=== PATIENT | female | born 1960 | race Caucasian/White ===

== ENCOUNTER 2017-04-27 09:20 | Outpatient (CLI) | payer BC ==
--- NOTE | 2017-05-02 15:29 | DEXA Report ---
DEXA: 04/27/2017 CLINICAL INDICATION: A 56-year-old postmenopausal patient for screening. TECHNIQUE: Dual energy x-ray absorptiometry (DXA) was performed on a [employer] system. Regions measured are the AP spine, femoral neck, and, if needed, forearm. COMPARISON: None. In accordance with the International Society for Clinical Densitometry (ISCD) guidelines, data from previous exams may be reanalyzed using current recommendations and techniques. This is done to allow a more accurate basis for comparison with the current study. FINDINGS The data for the lumbar spine is as follows: REGION BMD (g/cm/cm) T-SCORE Z-SCORE L1 0.818 -2.6 -1.6 L2 0.841 -3.0 -2.0 L3 1.021 -1.5 -0.5 L4 0.985 -1.8 -0.8 TOTAL 0.923 -2.1 -1.1 NOTE: All evaluable vertebrae are used for classification. The data for the hip is as follows: REGION BMD (g/cm/cm) T-SCORE Z-SCORE Neck 0.880 -1.1 0.0 TOTAL 0.863 -1.1 -0.4 NOTE: The femoral neck or total proximal femur, whichever is lowest, is used for classification. IMPRESSION THE WHO CLASSIFICATION BASED ON THE INTERNATIONAL REFERENCE STANDARD IS OSTEOPENIA. THE FRACTURE RISK IS INCREASED. RECOMMENDATION: Patients with diagnosis of osteoporosis or osteopenia should have regular bone mineral density assessment. For those eligible for Medicare, routine testing is allowed once every 2 years. Testing frequency can be increased for patients who have rapidly progressing disease or for those who are receiving medical therapy to restore bone mass. COMMENT: World Health Organization (WHO) definitions for osteoporosis and osteopenia: NORMAL BMD: T-score at 1.0 or higher, fracture risk is low. OSTEOPENIA BMD: T-score between 1.0 and -2.5, fracture risk is increased. OSTEOPOROSIS BMD: T-score at 2.5 or lower, fracture risk high. National Osteoporosis Foundation recommends: 1. Obtain adequate dietary calcium (at least 1200 mg per day) and vitamin D (400 -800 international units per day). 2. Participate, as appropriate, in regular weightbearing and muscle- strengthening exercise. 3. Avoid tobacco use and reduce alcohol and caffeine intake. 4. For more detailed information see the website at www.NOF.org. TD: 04/27/2017 19:45 MTDKhanh
== END 2017-04-27 09:21 | disposition home or self-care (01) ==
LOC: DI 09:20
PROVIDERS: ATTEND Naturopath
DX: Z13.820 Encounter for screening for osteoporosis (principal); M85.89 Other specified disorders of bone density and structure, multiple sites; Z78.0 Asymptomatic menopausal state
CPT/HCPCS: 77080

== ENCOUNTER 2017-04-27 09:21 | Outpatient (CLI) | payer BC ==
--- NOTE | 2017-05-03 10:28 | Mammography Report ---
DATE OF SERVICE: 04/27/2017 DIGITAL BILATERAL SCREENING MAMMOGRAM: 04/27/2017 COMPARISON: Mammogram 07/26/2015. INDICATION: Screening mammography. TECHNIQUE: Bilateral CC and MLO breast views. FINDINGS: The breast parenchyma is heterogeneously dense, which may limit the sensitivity of mammography. A right breast marker is noted. No dominant mass, architectural distortion or concerning cluster of microcalcifications are seen in other regards. IMPRESSION: BIRADS category 2 - Benign findings. RECOMMENDATIONS: Annual screening mammography. STANDARD QUALIFYING STATEMENTS 1. This examination was reviewed with the aid of Computed-Aided Detection (CAD) . 2. A negative or benign imaging report should not delay biopsy if clinically suspicious findings are present. Consider surgical consultation if warranted. More than 5% of cancers are not identified by imaging. 3. Dense breasts may obscure an underlying neoplasm. TD: 05/01/2017 21:32 SAUL
== END 2017-04-27 09:22 | disposition home or self-care (01) ==
LOC: DI 09:21
PROVIDERS: ATTEND Naturopath
DX: Z12.31 Encounter for screening mammogram for malignant neoplasm of breast (principal)
CPT/HCPCS: 77067

== ENCOUNTER 2019-12-24 16:55 | Emergency (ER) | payer BC, OTHER ==
[2019-12-24 17:35] LABS: BILIRUBIN,URINE NEGATIVE (NEGATIVE); GLUCOSE, URINE (UA) NEGATIVE (NEGATIVE); KETONES,URINE (UA) NEGATIVE (NEGATIVE); LEUKOCYTE ESTERASE, URINE NEGATIVE (NEGATIVE); NITRITE,URINE NEGATIVE (NEGATIVE); OCCULT BLOOD,URINE MODERATE (NEGATIVE); PROTEIN,URINE NEGATIVE (NEGATIVE); UROBILINOGEN,URINE 0.2 (NORMAL) E.U./dL (NORMAL)
[2019-12-24 17:36] LABS: CLARITY,URINE CLEAR (CLEAR)
[2019-12-24 17:48] LABS: BACTERIA,URINE None Seen /HPF (None Seen); RBC,URINE 0-5 /HPF (0-5); SQUAMOUS EPITHELIAL CELL,UR RARE Squamous (<= Few)
[2019-12-24] MEDS ORDERED: cephALEXin 250 MG CAPSULE PO STA (18:28)
--- NOTE | 2019-12-24 18:29 | ED Physician Documentation ---
History of Present Illness - Stated complaint Stated Complaint: FEMALE - Chief complaint Chief Complaint: UTI - Additonal information Additional information: 59-year-old female presents to the emergency department for evaluation of 2 days of dysuria, urgency and frequency. She denies any fevers, flank pain or vomiting. She reports that approximately 3 weeks ago she did have a urinary tract infection and was treated with Macrobid. She felt that the symptoms had fully resolved until 2 days ago. She reports a history of frequent urinary tract infections. She does have a history of a bladder sling and lift. Review of Systems Constitutional: denies: Fever, Chills Cardiac: denies: Chest pain / pressure, Palpitations Respiratory: denies: Dyspnea, Cough GI: reports: Abdominal Pain (suprapubic). denies: Nausea, Vomiting, Diarrhea, Hematemesis, Bloody / black stool : reports: Dysuria, Frequency, Hesitancy. denies: Hematuria Skin: denies: Rash, Lesions Musculoskeletal: denies: Neck pain, Back pain PD PAST MEDICAL HISTORY - Past Medical History Past Medical History: Yes - Present Medications Home Medications: Ambulatory Orders Medication Instructions Recorded Confirmed Cephalexin [Keflex] 500 mg PO BID #14 capsule 12/24/19 Phenazopyridine HCl [Pyridium] 200 mg PO TID PRN #6 tablet 12/24/19 - Allergies Allergies/Adverse Reactions: Allergies Allergy/AdvReac Type Severity Reaction Status Date / Time hydrochlorothiazide Allergy Unknown Verified 12/24/19 17:08 Sulfa (Sulfonamide Allergy Unknown Verified 12/24/19 17:08 Antibiotics) - Social History Does the pt smoke?: No Smoking Status: Never smoker Does the pt drink ETOH?: Yes Does the pt have substance abuse?: No - Immunizations Immunizations are current?: Yes - POLST Patient has POLST: No PD ED PE NORMAL - General General: Alert and oriented X 3, No acute distress - HEENT HEENT: Atraumatic - Neck Neck: Supple, no meningeal sign, No adenopathy - Cardiac Cardiac: RRR, No murmur - Respiratory Respiratory: No respiratory distress - Abdomen Abdomen: Normal bowel sounds, Soft. No: Non tender (suprapubic tenderness; no flank or CVA tenderness) - Back Back: No CVA TTP - Derm Derm: Normal color, Warm and dry, No rash - Extremities Extremities: No deformity, No tenderness to palpate, Normal ROM s pain - Neuro Neuro: Alert and oriented X 3, cooker syrup 2-12 intact Eye Opening: Spontaneous Motor: Obeys Commands Verbal: Oriented GCS Score: 15 Results - Vitals Vitals: Vital Signs - 24 hr 12/24/19 17:02 Temperature 36.6 C Heart Rate 67 Respiratory 16 Rate Blood Pressure 151/84 H O2 Saturation 97 Oxygen O2 Source Room air - Labs Labs: Laboratory Tests 12/24/19 17:16 Urine Color YELLOW Urine Clarity CLEAR Urine pH 6.0 Ur Specific [place] 1.010 Urine Protein NEGATIVE Urine Glucose (UA) NEGATIVE Urine Ketones NEGATIVE Urine Occult Blood MODERATE H Urine Nitrite NEGATIVE Urine Bilirubin NEGATIVE Urine Urobilinogen 0.2 (NORMAL) Ur Leukocyte Esterase NEGATIVE Urine RBC 0-5 Urine WBC 0-3 Ur Squamous Epith Cells RARE Squamous Urine Bacteria None Seen Ur Microscopic Review INDICATED Urine Culture Comments NOT INDICATED PD MEDICAL DECISION MAKING - ED course Complexity details: reviewed results, considered differential, d/w patient ED course: 59-year-old female presents to the emergency department for evaluation of 2 days dysuria, urgency and frequency. Her urine shows that she has hematuria but no leukocyte esterase bacteria or nitrites. However given that she was recently treated for UTI and her symptoms are similar to those in the past I will treat empirically today with Keflex. A culture is pending. Differential does also include interstitial cystitis, nephrolithiasis. However given her lack of flank pain fevers or CVA tenderness my suspicion for nephrolithiasis or a bladder stone is lower. I have advised her that in 2 to 3 weeks she should schedule an appointment with her primary care doctor. Her urine should be re-analyzed. If she continues to have hematuria further evaluation is warranted with differential consideration of interstitial cystitis versus nephrolithiasis etc. Departure - Departure Disposition: 01 Home, Self Care Clinical Impression: Dysuria Hematuria Qualifiers: Hematuria type: other microscopic Qualified Code(s): R31.29 - Other microscopic hematuria; R31.2 - Other microscopic hematuria Condition: Stable Record reviewed to determine appropriate education?: Yes Instructions: Urinary Tract Infecs Women Follow-Up: Caleb Farmer MD [Primary Care Provider] - 01/14/20 Prescriptions: Cephalexin [Keflex] 500 mg PO BID #14 capsule Phenazopyridine HCl [Pyridium] 200 mg PO TID PRN #6 tablet PRN Reason: dysuria Comments: Donya we have given you your first dose of antibiotics here in the emergency department. Tomorrow in the morning please fill the prescription for the Keflex and take twice a day for the next week. I did also prescribe some Pyridium to help with the bladder discomfort and frequency. Your urine today does show blood but there is no other markers of infection. Necessarily mean you do not have an infection. I would like you to follow-up with your primary care doctor in 2 to 3 weeks. If your symptoms have resolved the blood in your urine should be rechecked. If it is still present further evaluation and treatment may be necessary. Please return to the emergency department for fevers, uncontrolled vomiting or pain in your higher back.
[2019-12-24 18:37] VITALS: BP 148/78
== END 2019-12-24 18:37 | disposition home or self-care (01) ==
LOC: ED 16:55
DX: R30.0 Dysuria (principal); R31.29 Other microscopic hematuria
CPT/HCPCS: 81001; 99283; A9270; 81003; 87086

== ENCOUNTER 2021-02-16 08:12 | Outpatient (CLI) | payer OTHER ==
--- NOTE | 2021-02-17 09:58 | Mammography Report ---
BILATERAL DIGITAL SCREENING MAMMOGRAM 3D/2D: 02/16/2021 CLINICAL: Routine screening. Comparison is made to exams dated: 04/27/2017 mammogram, 07/26/2015 mammogram, 07/07/2014 mammogram, 1 06/27/2011 mammogram, and 03/03/2011 mammogram - Merged with [facility]. The tissue of both eliazar sts is predominantly fatty. There are benign calcifications in both breasts. There also are benign post operative findings in th e right breast. No significant masses, calcifications, or other findings are seen in either breast. There has been no significant interval change. IMPRESSION: BENIGN There is no mammographic evidence of malignancy. A 1 year screening mammogram is recommended. This exam was interpreted at Station ID: [id number]. NOTE: For mammograms, a report in lay terms will be sent to the patient. Approximately 15% of breast malignancies will not be visualized mammographically. In the management of a palpable breast mass, a negative mammogram must not discourage biopsy of a clinically suspicious lesion. Electronically Signed By: Anthony Dillon acr/penrad:02/16/2021 09:47:05 ACR BI-RADS Category 2: Benign Finding(s) 3342F PARENCHYMAL PATTERN: (F) - The breast(s) demonstrate(s) diffuse fatty replacement. BI-RADS CATEGORY: (2) - 2 RECOMMENDATION: (ANNUAL) - Recommend routine annual screening mammography. [id number] 1 year screening LATERALITY: (B)
== END 2021-02-16 08:13 | disposition home or self-care (01) ==
LOC: DI.N 08:12
DX: Z12.31 Encounter for screening mammogram for malignant neoplasm of breast (principal)

== ENCOUNTER 2023-06-05 08:49 | Outpatient (CLI) | payer MEDICARE, BC ==
--- NOTE | 2023-06-06 11:33 | Mammography Report ---
BILATERAL DIGITAL SCREENING MAMMOGRAM 3D/2D: 06/05/2023 CLINICAL: Routine screening. Comparison is made to exams dated: 02/16/2021 mammogram and 04/27/2017 mammogram - [facility]. Both breasts are heterogeneously dense, which may obscure small masses (category c / 51-75% glandular tissue). There are benign calcifications in both breasts. There also are benign post operative findings in th e right breast. No significant masses, calcifications, or other findings are seen in either breast. There has been no significant interval change. IMPRESSION: BENIGN There is no mammographic evidence of malignancy. A 1 year screening mammogram is recommended. Based on the Tyrer Cuzick model (a risk assessment model) the patient's lifetime risk is 10.8% and he r 10 year risk is 5.2%. According to the ACR, ACS, and NCCN guidelines, an annual breast MRI exam zahida ng with mammogram is recommended if the patient's lifetime risk is 20% or greater. This exam was interpreted at Station ID: [id number]. NOTE: For mammograms, a report in lay terms will be sent to the patient. Approximately 15% of breast malignancies will not be visualized mammographically. In the management of a palpable breast mass, a negative mammogram must not discourage biopsy of a clinically suspicious lesion. Electronically Signed By: Rudy callaway/russel:06/05/2023 09:24:34 letter sent: No_Letter ACR BI-RADS Category 2: Benign Finding(s) 3342F PARENCHYMAL PATTERN: (D) - The breast(s) demonstrate(s) heterogeneously dense fibroglandular gisele flores. BI-RADS CATEGORY: (2) - 2 Mammogram [id number] 1 year screening LATERALITY: (B)
== END 2023-06-05 08:50 | disposition home or self-care (01) ==
LOC: DI.N 08:49
DX: Z12.31 Encounter for screening mammogram for malignant neoplasm of breast (principal); R92.333 Mammographic heterogeneous density, bilateral breasts

== ENCOUNTER 2023-07-24 08:16 | Outpatient (CLI) | payer MEDICARE, BC ==
--- NOTE | 2023-07-24 15:55 | DEXA Report ---
PROCEDURE: Dexa Spine and/or Hip INDICATIONS: POST MENOPAUSAL TECHNIQUE: Dual energy x-ray absorptiometry (DXA) was performed on a [employer] System. Regions measur ed are the AP Spine, femoral neck, and if needed forearm. COMPARISON: DEXA, 04/27/2017. FINDINGS: Lumbar Spine: Bone Mineral Density: 0.685 g/cm/cm,T score: -4.0. Decreased by 17.5%. Left Femoral Neck: Bone Mineral Density: 0.747 g/cm/cm, T score: -2.1. Left Hip: Bone Mineral Density: 0.760 g/cm/cm,T score: -2.0. Decreased by 11.9%. (T score greater or equal to -1.0: NORMAL) (T score from -1.1 to -2.4: OSTEOPENIA) (T score less than or equal to -2.5 to: OSTEOPOROSIS) Impression: 1. By WHO criteria, this patient has osteoporosis. 2. Compared to the last exam, the patient's bone density in lumbar spine has decreased by 17.5%. The patient's bone density in left hip has decreased by 11.9%. Patients with diagnosis of osteoporosis or osteopenia should have regular bone mineral density assess ment. For those eligible for Medicare, routine testing is allowed once every 2 years. Testing frequ ency can be increased for patients who have rapidly progressing disease or for those who are receivin g medical therapy to restore bone mass. Reviewed by: Raudel Alcantara MD on 07/24/2023 3:53 PM PDT Approved by: Raudel Alcantara MD on 07/24/2023 3:53 PM PDT Station ID: [id number]
== END 2023-07-24 08:17 | disposition home or self-care (01) ==
LOC: DI 08:16
PROVIDERS: ATTEND Family Medicine
DX: Z78.0 Asymptomatic menopausal state (principal); M81.0 Age-related osteoporosis without current pathological fracture